=== PATIENT | female | born 1990 | race Caucasian/White ===

== ENCOUNTER 2016-06-17 15:40 | Emergency (ER) ==
[2016-06-17 15:51] VITALS: BP 146/85; TEMP 99; BMI 28.2
--- NOTE | 2016-06-17 16:27 | ED.PDOC ---
General ED Provider: Dr. TACHO SALGADO JR Chief Complaint: Rash Stated Complaint: Itchy, burning rash to rt neck et to throat area. Had shingles 02/2016. Feels similar to that. [ End ]99.0 114 20 98% 146/85 6/10 SHINGLES. FOCAL RASH WITH PRIOR RASH NO VESICLES THIS ITCHES AND GO NO VESICLES Time Seen by Physician: 16:45 Mode of Arrival: Walk-In Information Source: Patient Exam Limitations: No limitations Primary Care Provider: BEN PEREIRA Nursing and Triage Documentation Reviewed and Agree: No Review of Systems - Review Of Systems Constitutional: Reports: No symptoms Eyes: Reports: No symptoms Ears, Nose, Mouth, Throat: Reports: Throat pain (RASH) Respiratory: Reports: No symptoms Cardiac: Reports: No symptoms GI: Reports: No symptoms : Reports: No symptoms Musculoskeletal: Reports: No symptoms Skin: Reports: Rash All Other Systems: Other Past Medical History - Past Medical History Endocrine: Reports: None Cardiovascular: Reports: None Respiratory: Reports: None Hematological: Reports: None Gastrointestinal: Reports: None Genitourinary: Reports: None Neuro/Psych: Reports: None Musculoskeletal: Reports: None Cancer: Reports: None Last Menstrual Period: 1 week - Surgical History General Surgical History: Reports: Unknown - Family History Family History: Reports: Unknown - Social History Smoking Status: Never smoker Hx Substance Use: No Alcohol Screening: None Physical Exam - Physical Exam Appearance: Well-appearing Skin: Warm, Dry (NOTE NECK RASH) Critical Care Note - Critical Care Note Total Time (mins): 0 Course - Course Vital Signs: Temp Pulse Resp BP Pulse Ox 06/17/16 15:43 99.0 F 114 H 20 146/85 H 98 Departure - Departure Time of Disposition: 16:45 Disposition: HOME SELF-CARE Discharge Problem: Zoster Instructions: Shingles (ED) Condition: Good Pt referred to PMD for follow-up: Yes Additional Instructions: RECHECK PMD ONE WEEK Famciclovir: 500 mg three times daily for seven days FOR ZOSTER neurontin 300mg NEEDED for pain #21 AVOID CHEMICALS TO AREA MAY USE LOTION Prescriptions: Famciclovir [Famvir] 500 mg PO Q8H #15 tablet Gabapentin 300 mg PO TID PRN #30 capsule PRN Reason: PAIN Allergies/Adverse Reactions: Allergies No Known Allergies Allergy (Verified 06/17/16 15:48) Home Medications: Ambulatory Orders Famciclovir [Famvir] 500 mg PO Q8H #15 tablet 06/17/16 Gabapentin 300 mg PO TID PRN #30 capsule 06/17/16
== END 2016-06-17 17:15 | disposition home or self-care (01) ==
LOC: ED 15:40
DX: B02.9 Zoster without complications (principal)
CPT/HCPCS: 99282